=== PATIENT | female | born 1995 | race Caucasian/White ===

== ENCOUNTER 2018-03-20 00:54 | Emergency (ER) | payer OTHER ==
[2018-03-20] MEDS: KETOROLAC 60 MG INJ IM (02:40)
== END 2018-03-20 04:06 | disposition home or self-care (01) ==
LOC: FTE 04:06
DX: S10.93XA Contusion of unspecified part of neck, initial encounter (principal); S00.83XA Contusion of other part of head, initial encounter; S20.212A Contusion of left front wall of thorax, initial encounter; J45.909 Unspecified asthma, uncomplicated; Y09 Assault by unspecified means
CPT/HCPCS: 70360; 71100; 81025; 96372; 99284-25